=== PATIENT | female | born 1980 | race Caucasian/White ===

== ENCOUNTER 2017-07-20 08:56 | Observation (INO) | payer OTHER ==
[~2017-07-20] VITALS: Ht 175.3 cm; Wt 81.6 kg
[2017-07-20 09:07] VITALS: BP 115/77
[2017-07-20] MEDS ORDERED: SYNTHROID50 MCG PO (09:13)
[2017-07-20 09:56] LABS: URINE BILIRUBIN NEGATIVE (Negative); URINE BLOOD TRACE (Negative); URINE CLARITY CLEAR; URINE COLOR YELLOW; URINE GLUCOSE-RANDOM NEGATIVE (Negative); URINE KETONES NEGATIVE (Negative); URINE LEUKOCYTES-REFLEX NEGATIVE (Negative); URINE NITRITE-REFLEX NEGATIVE (Negative); URINE PROTEIN NEGATIVE (Negative); URINE UROBILINOGEN 0.2 E.U./dl (0.2-1.0)
[2017-07-20 10:00] LABS: ABSOLUTE EOSINOPHILS 0.1 thou/uL (0.0-0.7); ABSOLUTE LYMPHOCYTES 1.2 thou/uL (0.8-5.3); ABSOLUTE MONOCYTES 0.8 thou/uL (0.0-1.2); ABSOLUTE NEUTROPHILS 9.3 thou/uL (1.6-8.1); BASOPHILS 0.2 %; EOSINOPHILS 1.3 %; HEMATOCRIT 39.6 % (37.0-47.0); HEMOGLOBIN 13.5 gm/dL (12.0-15.0); LYMPHOCYTES 10.7 %; MCH 30.4 pg (26.0-34.0); MCHC 34.1 g/dL (28.0-37.0); MONOCYTES 6.6 %; MPV 7.7 fl. (7.2-11.1); NUCLEATED RBCS 0 /100WBC; PLATELET COUNT* 212 thou/uL (150-400); POLYS 81.2 %; RBC 4.45 mil/uL (4.20-5.00); WBC 11.4 thou/uL (4.0-11.0)
[2017-07-20 10:17] LABS: ANION GAP 7 mmol/L (7-16); BUN 12 mg/dL (7-18); CHLORIDE 104 mmol/L (98-107); CO2 29 mmol/L (21-32); GLUCOSE 95 mg/dL (70-99); POTASSIUM 3.8 mmol/L (3.5-5.1); SODIUM 140 mmol/L (136-145)
[2017-07-20 10:23] LABS: ALBUMIN 4.2 g/dL (3.4-5.0); ALKALINE PHOSPHATASE 62 U/L (46-116); LIPASE 149 U/L (73-393); SGOT 19 U/L (15-37); SGPT 27 U/L (30-65); TOTAL BILIRUBIN 0.7 mg/dL (<0.1-1.0); TOTAL PROTEIN 7.6 g/dL (6.4-8.2); TROPONIN-I LEVEL <0.06 ng/mL (<0.06)
--- NOTE | 2017-07-20 14:34 | EKG ---
[place] [address] ELECTROCARDIOGRAM REPORT Name: PADMINI DE LA CRUZ Room: [address]R.#: [id number] Admission: 07/20/17 Attend Phys: Maryjo Resendiz DO Discharge: Date of : 78 Report #: [id number] THIS REPORT FOR: //name// [facility] ED Test Date: 2017-07-20 Test Time: 10:00:30 Pat Name: PADMINI DE LA CRUZ Department: Room: Gender: F Manager Support Services: Oralia MANN : 1980 Requested By: Emory Ellison Order Number: [id number] MD: Tony Keenan Measurements Intervals [place] Rate: 67 P: 26 NC: 197 QRS: -17 QRSD: 98 T: 50 QT: 395 QTc: 417 Interpretive Statements Sinus rhythm Borderline left axis deviation Low voltage, extremity and precordial leads RSR' in V1 or V2, probably normal variant No previous ECG available for comparison Electronically Signed On 07-20-2017 14:34:47 CDT by Tony Keenan [email or web address] <ELECTRONICALLY SIGNED> By: Tony Keenan MD, [facility] 07/20/17 1434 1000 1000 Tony Keenan MD, [facility] /EPI
[2017-07-20 15:23] VITALS: BP 97/58
[2017-07-20 20:00] VITALS: BP 94/57
[2017-07-21 00:14] VITALS: BP 90/50
[2017-07-21 04:02] VITALS: BP 105/55
--- NOTE | 2017-07-21 05:20 | NUR ---
ASSUMED CARE OF PT AT 1900 ALERT AND ORIENTED X4 VS AND ASSESSMENT STABLE. PT C/O PAIN NOT CONTROLLED WITH PO PAIN MEDS GAVE IV DILAUDID X2 PT PAIN BETTER CONTROLED. PT ENCOURAGED TO TRY TO GET SOME SLEEP PT STATED " I NEVER SLEEP IN THE HOSPITAL" ENCOURAGED PT TO TRY TO TURN LIGHTS AND TV OFF AND SEE IF THAT WOULD HELP PT STATED " I NEED THOSE ON TO DISTRACT ME FROM MY PAIN IM NOT TRYING TO STAY UP ON PURPOSE" PT CURRENTLY RESTING COMFORTABLY. POSITIVE CMS CHECKS TO RLE ANNALISAG CDI. WILL CONTINUE PLAN OF CARE.
--- NOTE | 2017-07-21 05:26 | NUR ---
PT ARRIVED ON UNIT FROM PACU AT 2044 PT DROWSY AND ORIENTED X4 VS AND ASSESSMENT STABLE FOR PT. PT HAD NAUSEA WHEN SHE ARRIVED BUT THAT RESOLVED ON ITS OWN. PT DENIED ANY OTHER COMPLAINTS. LAP SITED CDI. PT SLEPT THROUGH THE NIGHT. WILL CONTINUE PLAN OF CARE.
[2017-07-21 08:00] VITALS: BP 98/72
[2017-07-21 09:53] VITALS: BP 98/72
[2017-07-21] MEDS ORDERED: SYNTHROID50 MCG PO (10:30)
[2017-07-21] MEDS ORDERED: COLACE100 MG PO (10:40)
[2017-07-21] MEDS ORDERED: TYLENOL325 MG PO (10:42)
[2017-07-21 10:52] VITALS: BP 98/72
[2017-07-21 11:16] VITALS: BP 98/72
--- NOTE | 2017-07-21 11:17 | NUR ---
RECIEVED REPORT FROM NIGHT, RN. ASSESSMENT CHARTED. AFEBRILE. PT DENIES ANY NAUSEA OR PAIN. D/C TODAY. INSTRUCTIONS GIVEN WELL SCRIPT. ALL QUESTIONS ANSWERED. PT LEFT UNIT AT 1115.
--- NOTE | 2017-07-26 20:49 | OP ---
[address] [address] OPERATIVE REPORT Name: PADMINI DE LA CRUZ Room: [address] Eloise Barraza#: [id number] Admission: 07/20/17 Attend Phys: Maryjo Resendiz DO Discharge: 07/21/17 Date of : 78 Report #: [id number] THIS REPORT FOR: //name// CC: Yoni Resendiz Primary Care Doctor DICTATED BY: Man Rouse DO DATE OF SERVICE: 07/20/2017 PREOPERATIVE DIAGNOSIS: Acute appendicitis with localized peritonitis. POSTOPERATIVE DIAGNOSIS: Acute appendicitis with localized peritonitis. SURGEON: Maryjo Resendiz DO COSURGEON: Suman Rouse, PGY-3. PULP REFINER OPERATOR: Lacie Ortiz, MS-3. OPERATION PERFORMED: Laparoscopic appendectomy. ANESTHESIA: General and local. ESTIMATED BLOOD LOSS: 3 mL. SPECIMENS REMOVED: Appendix. COMPLICATIONS: None. DISPOSITION: PACU to the floor. HISTORY OF PRESENT ILLNESS: The patient is a very pleasant 36-year-old female who presented to the ER today for right lower quadrant abdominal pain. She states that her pain started last night after supper. Her pain persisted through the evening and even woke up with it this morning, which was notably increased. She states that the pain was much worse with ambulation, specifically with walking. She denies any nausea or vomiting. Denies any obvious fevers. No recent sick contacts or illnesses. The patient was worked up in the ER and was found to have a mild leukocytosis of 11.4 of her white blood cell count and she also had a CT finding consistent with acute appendicitis. Surgery was consulted to come see the patient and after a thorough examination and physical, it was found that the patient did present with signs of acute appendicitis and have all the imaging studies to confirm it. It was at that time, we did elect to recommend [place] [address] OPERATIVE REPORT Name: PADMINI DE LA CRUZ Room: [address] Eloise Barraza#: [id number] Admission: 07/20/17 Attend Phys: Maryjo Resendiz, Discharge: 07/21/17 Date of : 78 Report #: [id number] complete description of the procedure was reviewed in detail with the patient. All the risks, benefits, and complications were discussed with the patient. She voiced complete understanding and wished to proceed. DESCRIPTION OF PROCEDURE: After the appropriate consents were obtained, the patient was taken to the operating room, laid in supine position. She had SCDs placed on lower extremities and she had a safety strap placed across her thighs. All lines were placed by Anesthesia. She was given Zosyn approximately 3 hours before surgery and this carried over to our raymundo-incisional antibiotics. The patient was then intubated and sedated by Anesthesia without any difficulty. Her abdomen was exposed. Her left arm was tucked by her side and the abdominal area was then prepped and draped in a standard sterile fashion. A timeout was performed to correctly identify the patient and procedure. We started with injecting some 0.5% Marcaine in the infraumbilical region where we had to make our incision. Then, using 2 Adson's and an 11 blade scalpel, we made our infraumbilical incision along the previous scar that she had at the superior edge of the inferior aspect of her umbilicus. We dissected down through the previous scar tissue and subcutaneous tissue until we encountered the anterior abdominal wall fascia. The fascia was grasped and elevated between 2 Osorio clamps. We incised the fascia using electrocautery. Using a hemostat, we bluntly dissected until we encountered the peritoneum. The peritoneum was elevated and incised between 2 hemostats using a pair of Metzenbaum scissors. We then entered the abdominal cavity without difficulty using a hemostat. Using a finger, we were able to bluntly sweep the incision site to ensure there were no raymundo-incisional adhesions present and none were. We then placed two separate 0 Vicryl sutures on either side of the fascial incision, which were later acted as our stay sutures for our Floresita trocar. The Floresita trocar was then introduced into the abdominal cavity and the gas was hooked up and the patient's abdomen was insufflated to 15 mmHg. The previously placed 2-0 Vicryl sutures were then secured to the Floresita trocar. The Kochers were removed and the camera was then introduced into the patient's abdominal cavity. Upon initial inspection, the patient had minimal amount of free fluid in the pelvis and no other acute anterior abdominal wall findings besides a notably inflamed appendix in the right lower quadrant. After a brief inspection, we turned our attention back to the right lower quadrant and I was able to easily visualize the appendix coursing behind the cecum. We decided to place our left lower quadrant port, which was a 5-mm port. This was placed under direct visualization after the fascia was anesthetized with lidocaine with local anesthetic. We also placed a suprapubic port in the same fashion under direct visualization. This was also a 5 mm port. Using 2 blunt graspers, the appendix was grasped and elevated anteriorly and cephalad and all of the small bowel including the TI was swept away. We were able to easily visualize our base, at which time, a [place] grasper was obtained to make a window between the mesoappendix and the appendix. This was done so easily. Once a window was created, we changed our position of our camera from our umbilical port to our left lower quadrant port. Using a 45 mm blue load Endo-SOPHY, we were able to staple across the base of the appendix. [address] [address] OPERATIVE REPORT Name: PADMINI DE LA CRUZ Room: [address] Eloise Barraza#: [id number] Admission: 07/20/17 Attend Phys: Maryjo Resendiz DO Discharge: 07/21/17 Date of : 78 Report #: [id number] We then used a 45 mm white load Endo-SOPHY to staple across the mesoappendix. There was a minimal amount of bleeding that occurred, which had stopped by the time we were through with our second staple load. After a brief inspection, there did not appear to be any active bleeding, so we decided to desufflate the abdomen to ensure there was no further bleeding after the pressure was released. There was no bleeding that was observed at that time, so we replaced the TI as well as the cecum to its normal anatomical position and we placed some omentum over the staple lines. The patient was then allowed to return to neutral supine position and our trocars were removed under direct visualization. The abdomen was allowed to desufflate and the camera as well as the appendix were removed from the umbilical port. The previously placed 0 Vicryl sutures were used as elevator to elevate the fascia and the fascia was then once again grasped between 2 Osorio clamps. Using another 4-strand of 0 Vicryl suture, we placed a wyxawr-dw-crsow suture in the fascia and achieved good approximation. We also used 0.5% Marcaine to inject the fascia. After this, the [id number] suture was tied. The skin was closed using running subcuticular 4-0 Monocryl suture. The 5 mm port sites were closed using inverted interrupted 4-0 Monocryl suture. The port sites were then further injected with 0.5% Marcaine. A total of 50 mL was used during this case. We cleaned the abdomen well and dried it adequately. We placed Mastisol, Steri-Strips and a sterile gauze as well as a Tegaderm and Op-Site over each of the incision sites. The patient was allowed to awaken in the operating room and will be transferred to the PACU in stable condition. All counts were correct x 2 at the end of this procedure. Dr. Maryjo Resendiz was present and scrubbed for the entirety of this procedure. <ELECTRONICALLY SIGNED> By: Maryjo Resendiz DO 07/26/172048 27 46Chwill Resendiz DO /nt
== END 2017-07-21 11:15 | disposition home or self-care (01) ==
LOC: M.ERS 08:56 → M.TBA-ER 13:43 → M.ORTHSURG 13:43
PROVIDERS: Emergency Medicine; ADMIT Surgery
DX: K35.3 Acute appendicitis with localized peritonitis (principal); D72.829 Elevated white blood cell count, unspecified; E03.9 Hypothyroidism, unspecified; Z98.51 Tubal ligation status; Z90.89 Acquired absence of other organs; Z72.89 Other problems related to lifestyle

== ENCOUNTER → 2017-08-07 | Outpatient (CLI) | payer OTHER ==
[~2017-08-07] MED LIST: COLACE100 MG PO; SYNTHROID50 MCG PO; TYLENOL325 MG PO
== END ==
LOC: M.ULTRA 08:00
DX: R93.8 Abnormal findings on diagnostic imaging of other specified body structures (principal); N85.2 Hypertrophy of uterus

== ENCOUNTER → 2019-05-26 | Outpatient (CLI) | payer OTHER | LOC: M.ULTRA 07:30 | DX: E04.9 Nontoxic goiter, unspecified (principal) ==